=== PATIENT | male | born 1980 | race African-American/Black ===

== ENCOUNTER 2024-04-25 07:51 | Observation (INO) | payer SELFPAY ==
[2024-04-25] MEDS ORDERED: NA CHLORIDE 0.9% 1,000 ML ONE ×2 (08:12→09:41)
[2024-04-25 09:05] LABS: Specific Gravity > 1.030 (1.005-1.030); Sqamous Epithelial <5 /HPF (None Seen); Urine Bacteria None Seen /HPF (<20); Urine Bilirubin NEGATIVE (Negative); Urine Blood Negative (Negative); Urine Clarity Clear (Clear); Urine Color Light-Yellow (Yellow); Urine Culture Reflex Order NOT NEEDED; Urine Glucose 4+ (Over) (Negative); Urine Ketones 2+ (Negative); Urine Micro Reflex YN NO BILL MICROSCOPIC; Urine Mucus Slight /HPF (None Seen); Urine Nitrite NEGATIVE (Negative); Urine Protein TRACE (Negative); Urine RBC <5 /HPF (None Seen); Urine Urobilinogen Normal (Normal); Urine WBC <5 /HPF (<5)
[2024-04-25 09:44] LABS: Absolute Lymphocytes (CBC) 2.4 K/uL (0.7-4.9); Absolute Monocytes 0.7 K/uL (0.1-1.3); Absolute Neutrophil 4.8 K/uL (1.8-8.0); Basophils % 0.6 % (0-1.3); Eosinophils % 0.6 % (0-4.4); Hematocrit 41.8 % (39.6-49.0); Hemoglobin 14.6 g/dL (13.6-17.9); Lymphocytes % 29.9 % (15.3-44.8); MCH 30.3 pg (27.0-35.0); MCHC 35.1 g/dL (32.0-36.0); MCV 86.5 fL (80-100); MPV 9.4 fL (7.6-11.3); Monocytes % 8.5 % (3.3-12.3); Neutrophils % 60.4 % (41.7-73.7); Platelets 244 thou/uL (152-406); RBC Red Blood Cell Count 4.83 M/uL (4.33-5.43); Red Cell Distribution Width 14.1 % (12.1-15.2)
[2024-04-25 10:02] LABS: Sodium Level 138 mEq/L (136-145)
[2024-04-25 10:03] LABS: Alkaline Phosphatase 80 U/L (45-117); Anion Gap 29.4 mEq/L (5.0-15.0); BETA HYDROXYBUTYRATE 3.69 mmol/L (0.02-0.27); Bilirubin Total 0.4 mg/dL (0.2-1.0); Glomerular Filtration Rate 112 ml/min (=/>90); Glucose Level 355 mg/dL (74-106); Lipase 24 U/L (13-75); Phosphorus 4.5 mg/dL (2.5-4.9); Protein, Total 6.2 g/dL (6.4-8.2)
[2024-04-25 10:14] LABS: ALT/SGPT < 14 U/L (16-61); AST/SGOT < 10 U/L (15-37); Albumin < 0.9 g/dL (3.4-5.0); Albumin/Globulin Ratio ND (1.1-1.8); BUN Blood Urea Nitrogen < 3 mg/dL (7-18); Bicarbonate < 8 mEq/L (21-32); Bilirubin Direct < 0.2 mg/dL (0-0.2); Bilirubin Indirect, Calculated 0.2 mg/dL (0.2-0.8); Globulin 5.3 g/dL (2.3-3.5); Potassium 3.4 mEq/L (3.5-5.1)
[2024-04-25 10:15] LABS: Magnesium 2.3 mg/dL (1.6-2.4)
--- NOTE | 2024-04-25 10:24 | ER ---
Nurse's Notes [facility] Name: Dong Velazco Jr Age: 43 yrs Sex: Male : 1980 Arrival Date: 04/25/2024 Time: 07:51 Bed 15 Private MD: Diagnosis: Diabetes mellitus due to underlying condition with ketoacidosis without coma Presentation: 04/25 08:10 Chief complaint: Patient states: he has had frequent urination, nausea, increased ap3 thirst and fatigue for "some time". patient denies any pain at this time. patient reports he has been evaluated at another facility where he was informed he had "sugar in his urine". Coronavirus screen: At this time, the client does not indicate any symptoms associated with coronavirus-19. Ebola Screen: No symptoms or risks identified at this time. Initial Sepsis Screen: Does the patient meet any 2 criteria? No. Patient's initial sepsis screen is negative. Does the patient have a suspected source of infection? No. Patient's initial sepsis screen is negative. Risk Assessment: Do you want to hurt yourself or someone else? Patient reports no desire to harm self or others. Onset of symptoms is unknown. 08:10 Method Of Arrival: Ambulatory ap3 08:10 Acuity: FORTUNATO 3 ap3 Triage Assessment: 08:13 General: Appears in no apparent distress. Behavior is calm, cooperative, appropriate ap3 for age, Reports fatigue for. Pain: Denies pain. Neuro: Level of Consciousness is awake, alert, obeys commands, Oriented to person, place, time, situation. Cardiovascular: Patient's skin is warm and dry. Respiratory: Airway is patent Respiratory effort is even, unlabored, Respiratory pattern is regular, symmetrical. GI: Reports nausea. Historical: - Allergies: 08:12 No Known Allergies; ap3 - Home Meds: 08:12 None [Active]; ap3 - PMHx: 08:12 None; ap3 - Immunization history:: Client reports receiving the 2nd dose of the Covid vaccine. - Infectious Disease History:: Denies. - Social history:: Smoking status: Patient denies any tobacco usage or history of. Screenin:02 [facility] ED Fall Risk Assessment (Adult) History of falling in the last 3 months, rs5 including since admission No falls in past 3 months (0 pts) Confusion or Disorientation No (0 pts) Intoxicated or Sedated No (0 pts) Impaired Gait No (0 pts) Mobility Assist Device Used No (0 pt) Altered Elimination No (0 pt) Score/Fall Risk Level 0 - 2 = Low Risk Oriented to surroundings, Maintained a safe environment. 08:14 Abuse screen: Denies threats or abuse. Nutritional screening: No deficits noted. ap3 Tuberculosis screening: No symptoms or risk factors identified. Assessment: 08:02 General: Appears in no apparent distress. uncomfortable, Behavior is calm, cooperative. rs5 Pain: Denies pain. Neuro: Level of Consciousness is awake, alert, obeys commands, Oriented to person, place, time, situation, Reports generalized weakness and fatigue. Cardiovascular: Patient's skin is warm and dry. Respiratory: Airway is patent Respiratory effort is even, unlabored, Respiratory pattern is regular, symmetrical. GI: Abdomen is round non-distended, Reports nausea, Patient currently denies vomiting. : Reports urinary frequency. EENT: Reports increased thirst over past 2-3 days. Derm: Skin is intact, Skin is dry, Skin is normal, Skin temperature is warm. Musculoskeletal: Range of motion: intact in all extremities. 08:20 Reassessment: to bedside for blood sugar check, BS results: 393, provider notified of rs5 elevated blood sugars. 09:22 Reassessment: Patient and/or family updated on plan of care and expected duration. Pain rs5 level reassessed. Patient is alert, oriented x 3, equal unlabored respirations, skin warm/dry/pink. 10:45 Reassessment: No changes from previously documented assessment. rs5 11:01 Reassessment: Patient and/or family updated on plan of care and expected duration. Pain rs5 level reassessed. Patient is alert, oriented x 3, equal unlabored respirations, skin warm/dry/pink. General: Behavior is. Vital Signs: 08:10 BP 144 / 94; Pulse 84; Resp 18; Temp 98.6(O); Pulse Ox 100% ; Weight 126.1 kg; Height 5 ap3 ft. 7 in. ; 10:05 BP 137 / 88; Pulse 77; Resp 17; Pulse Ox 99% on R/A; rs5 11:02 BP 133 / 84; Pulse 70; Resp 17; Pulse Ox 99% on R/A; rs5 08:10 Body Mass Index 43.54 (126.10 kg, 170.18 cm) ap3 ED Course: 07:54 Patient arrived in ED. rg4 07:59 Carrie Marin [facility]C is [facility] sb4 07:59 Jan Villarreal MD is Attending Physician. sb4 08:07 Jaren Maddox, RN is Primary Nurse. rs5 08:12 Triage completed. ap3 08:14 Arm band placed on right wrist. ap3 08:14 Patient has correct armband on for positive identification. Call light in reach. Side ap3 rails up X 1. Adult w/ patient. 08:22 Missed attempt(s): 22 gauge in right hand. rs5 08:55 Initial lab(s) drawn, by me, sent to lab. Inserted saline lock: 20 gauge in right em1 forearm, using aseptic technique. Blood collected. 09:20 Missed attempt(s): 24 gauge in left wrist. Bleeding controlled, band aid applied, ph catheter tip intact. 10:22 Theresa Solares MD is Hospitalizing Provider. sb4 11:02 No provider procedures requiring assistance completed. Patient admitted, IV remains in rs5 place. 11:03 Glucose, Ancillary Testing Sent. rs5 Administered Medications: 08:54 Drug: NS 0.9% IV 1000 ml IV at 1000 ml once Route: IV; Rate: 1000 ml; Site: right rs5 antecubital; 09:20 Follow up: Response: No adverse reaction rs5 10:02 Follow up: IV Status: Completed infusion; IV Intake: 999ml rs5 09:37 Drug: NS 0.9% IV 1000 ml IV at 1 bolus Per protocol; 1000 mL bolus Route: IV; Rate: 1 rs5 bolus; Site: right forearm; 10:00 Follow up: Response: No adverse reaction rs5 11:04 Follow up: IV Status: Completed infusion; IV Intake: 999ml rs5 11:34 Drug: Insulin Drip - (Insulin Regular Human IVP 100 units, NS 0.9% IV 100 ml) IV at rs5 calculated rate continuous; Standard concentration 1unit/ml; Dose for DKA is 0.1 units/kg/hr {Co-Signature: ph (Sveta Jesus RN).} Route: IV; Rate: calculated rate; Site: left antecubital; 11:45 Follow up: Response: No adverse reaction rs5 Medication: 11:03 VIS not applicable for this client. rs5 Intake: 10:02 IV: 999ml; Total: 999ml. rs5 11:04 IV: 999ml; Total: 1998ml. rs5 Outcome: 10:23 Decision to Hospitalize by Provider. sb4 11:03 Admitted to ER Hold. Please see [facility] for further documentation. rs5 11:03 Condition: stable 11:03 Instructed on the need for admit, Demonstrated understanding of instructions, 12:07 Patient left the ED. rs5 Signatures: Dylon Flores em1 Sveta Jesus, RN RN ph Charlotte Yee Amanda RN RN ap3 Carrie Marin PAElio PAElio sb4 Jaren Maddox RN RN rs5 Sveta Jesus RN ph Corrections: (The following items were deleted from the chart) 10:59 08:20 Reassessment: to bedside for blood sugar check, BS results: 393. rs5 rs5
--- NOTE | 2024-04-25 10:24 | EDPHYS ---
Physician Documentation [facility] Name: Dong Velazco Jr Age: 43 yrs Sex: Male : 1980 Arrival Date: 04/25/2024 Time: 07:51 Bed 15 Private MD: ED Physician Jan Villarreal HPI: 04/25 08:10 This 43 yrs old Black Male presents to ER via Unassigned with complaints of High Blood sb4 Sugar. 08:11 Patient states he has been feeling poorly over the past week. Very thirsty, frequent sb4 urination, headache, nausea, fatigue. He went to [place] ED 4 days ago for the frequent urination, was told he had glucose in his urine but also an infection and prescribed an antibiotic. States that his symptoms has have persisted. His significant other checked his blood sugar last night and states it read high. When she checked it this morning it was 530. He denies any prior diagnosis of diabetes or any chronic medical problems. Historical: - Allergies: 08:12 No Known Allergies; ap3 - Home Meds: 08:12 None [Active]; ap3 - PMHx: 08:12 None; ap3 - Immunization history:: Client reports receiving the 2nd dose of the Covid vaccine. - Infectious Disease History:: Denies. - Social history:: Smoking status: Patient denies any tobacco usage or history of. ROS: 08:11 Constitutional: Negative for fever, chills, and weight loss, sb4 08:11 Abdomen/GI: Positive for nausea, 08:11 Neuro: Positive for headache, 08:11 Endocrine: Positive for polydipsia, polyuria, 08:46 All other systems are negative, sb4 Exam: 08:11 Head/Face: Normocephalic, atraumatic. Eyes: Extra-ocular motions intact. Periorbital sb4 areas with no swelling, redness, or edema. ENT: Mucous membranes moist. Cardiovascular: Regular rate and rhythm with a normal S1 and S2. Respiratory: Lungs have equal breath sounds bilaterally, clear to auscultation and percussion. No rales, rhonchi or wheezes noted. No increased work of breathing, no retractions or nasal flaring. Abdomen/GI: Soft, non-tender, no distension. Skin: Warm, dry with normal turgor. Normal color with no rashes, no lesions, and no evidence of cellulitis. MS/ Extremity: Pulses equal, no cyanosis. Neurovascular intact. Full, normal range of motion. Neuro: Awake and alert, GCS 15, oriented to person, place, time, and situation. Motor strength 5/5 in all extremities. Sensory grossly intact. 08:11 Constitutional: The patient appears in no acute distress, alert, awake, obese, Vital Signs: 08:10 BP 144 / 94; Pulse 84; Resp 18; Temp 98.6(O); Pulse Ox 100% ; Weight 126.1 kg; Height 5 ap3 ft. 7 in. ; 10:05 BP 137 / 88; Pulse 77; Resp 17; Pulse Ox 99% on R/A; rs5 11:02 BP 133 / 84; Pulse 70; Resp 17; Pulse Ox 99% on R/A; rs5 08:10 Body Mass Index 43.54 (126.10 kg, 170.18 cm) ap3 MDM: 08:02 Patient medically screened. sb4 10:22 Data reviewed: vital signs, nurses notes, lab test result(s), and as a result, I will sb4 admit patient. Consideration of Admission/Observation Patient was admitted/placed on observation. Counseling: I had a detailed discussion with the patient and/or guardian regarding the historical points, exam findings, and any diagnostic results supporting the discharge/admit diagnosis, lab results, the need for further work-up and treatment in the hospital. 04/25 08:09 Order name: BETA HYDROXYBUTYRATE; Complete Time: 10:19 4 04/25 08:09 Order name: Basic Metabolic Panel; Complete Time: 10:19 4 04/25 08:09 Order name: CBC with Diff; Complete Time: 09:49 sb4 04/25 08:09 Order name: Hepatic Function; Complete Time: 10:19 sb4 04/25 08:09 Order name: Lipase; Complete Time: 10:19 4 04/25 08:09 Order name: Magnesium; Complete Time: 10:19 sb4 04/25 08:09 Order name: Phosphorus; Complete Time: 10:19 4 04/25 08:55 Order name: Urinalysis W/Microscopic; Complete Time: 09:07 EDMS 04/25 08:59 Order name: Glucose, Ancillary Testing; Complete Time: 08:59 EDMS 04/25 09:02 Order name: Glucose, Ancillary Testing EDMS 04/25 11:43 Order name: Glucose, Ancillary Testing; Complete Time: 11:43 EDMS 04/25 08:09 Order name: Cardiac monitoring; Complete Time: 08:54 sb4 04/25 08:09 Order name: IV Saline Lock; Complete Time: 08:54 sb4 04/25 08:09 Order name: O2 Per Protocol; Complete Time: 08:54 sb4 04/25 08:09 Order name: O2 Sat Monitoring; Complete Time: 08:54 sb4 04/25 09:18 Order name: Labs - recollect needed: recollect green top; Complete Time: 09:29 bd Administered Medications: 08:54 Drug: NS 0.9% IV 1000 ml IV at 1000 ml once Route: IV; Rate: 1000 ml; Site: right rs5 antecubital; 09:20 Follow up: Response: No adverse reaction rs5 10:02 Follow up: IV Status: Completed infusion; IV Intake: 999ml rs5 09:37 Drug: NS 0.9% IV 1000 ml IV at 1 bolus Per protocol; 1000 mL bolus Route: IV; Rate: 1 rs5 bolus; Site: right forearm; 10:00 Follow up: Response: No adverse reaction rs5 11:04 Follow up: IV Status: Completed infusion; IV Intake: 999ml rs5 11:34 Drug: Insulin Drip - (Insulin Regular Human IVP 100 units, NS 0.9% IV 100 ml) IV at rs5 calculated rate continuous; Standard concentration 1unit/ml; Dose for DKA is 0.1 units/kg/hr {Co-Signature: ph (Sveta Jesus RN).} Route: IV; Rate: calculated rate; Site: left antecubital; 11:45 Follow up: Response: No adverse reaction rs5 Disposition: 14:29 Co-signature as Attending Physician, Jan Villarreal MD I reviewed the patient's care rt provided by the Advanced Practice Provider and agree with the diagnosis and treatment plan. Disposition Summary: 04/25/24 10:23 Hospitalization Ordered Notes: Hospitalization Status: Inpatient Admission sb4 Provider: Theresa Solares sb4 Condition: Fair sb4 Problem: new sb4 Symptoms: are unchanged sb4 Bed/Room Type: Standard sb4 Location: Intensive Care Unit(04/25/24 10:26) sb4 Room Assignment: 6-(04/25/24 10:55) bd Diagnosis - Diabetes mellitus due to underlying condition with ketoacidosis without coma sb4 Discharge Instructions: - Discharge Summary Sheet sb4 - Type 2 Diabetes Mellitus, Diagnosis, Adult sb4 Forms: - Medication Reconciliation Form sb4 - SBAR form sb4 - Leadership Thank You Letter sb4 Prescriptions: - metformin 500 mg Oral tablet - take 1 tablet ORAL route 2 times per day with meals; 60 tablet; Refills: 0, sb4 Product Selection Permitted Critical care time excluding procedures: 10:38 Critical care time: Bedside Care: 15 minutes, Consultation: 10 minutes, Family sb4 Intervention: 10 minutes. Total time: 35 minutes Signatures: Dispatcher [employer] EDMS Mabel Mazariegos Amanda, RN RN ap3 Carrie Marin, DAWOOD PAElio sb4 Jan Villarreal MD MD rt Jaren Maddox RN RN rs5 Sveta Jesus RN ph Corrections: (The following items were deleted from the chart) 08:55 08:55 BETA HYDROXYBUTYRATE+C.LAB.BRZ ordered. EDMS EDMS 08:55 08:55 BASIC METABOLIC PANEL+C.LAB.BRZ ordered. EDMS EDMS 08:55 08:55 CBC+H.LAB.BRZ ordered. EDMS EDMS 08:55 08:55 HEPATIC FUNCTION+C.LAB.BRZ ordered. EDMS EDMS 08:55 08:55 LIPASE+C.LAB.BRZ ordered. EDMS EDMS 08:55 08:55 MAGNESIUM+C.LAB.BRZ ordered. EDMS EDMS 08:55 08:55 PHOSPHORUS+C.LAB.BRZ ordered. EDMS EDMS 08:58 08:55 Urinalysis W/Microscopic+U.LAB.BRZ ordered. EDMS EDMS 10:26 10:23 Telemetry/MedSurg (Inpatient) sb4 sb4 10:26 10:23 sb4 sb4 10:55 10:26 sb4 bd
--- NOTE | 2024-04-25 10:49 | P.HP ---
Certification for Inpatient Patient admitted to: Observation Practitioner: I am a practitioner with admitting privileges, knowledge of patient current condition, hospital course, and medical plan of care. Services: Services provided to patient in accordance with Admission requirements found in Title 42 Section 412.3 of the Code of Federal Regulations Patient History Date of Service: 04/25/24 Reason for admission: Hyperglycemia History of Present Illness: 47-year-old male with no significant past medical history presents to the emergency room with fatigue. He reports symptoms started 2 weeks ago is progressively worse. He reports polyuria, polydipsia, poor appetite, nothing makes it better, nothing makes it worse. He denies history of diabetes, ER evaluation patient had noted hyperglycemia blood glucose greater than 500, treated with 2 L normal saline, CBC within normal limit, UA 4+ glucosuria, 2+ ketones, plan to admit for DKA, new onset diabetes, to ICU on insulin drip. Allergies No Known Allergies Allergy (Unverified 04/25/24 10:50) - Past Medical/Surgical History -: New diagnosis of diabetes 04/2024 -: Ankle surgery - Social History Smoking Status: Current some day smoker Alcohol use: Yes Place of Residence: Home Review of Systems Per HPI Physical Examination - Physical Exam General: Alert, In no apparent distress, Oriented x3 HEENT: Atraumatic, Normocephalic Respiratory: Clear to auscultation bilaterally, Normal air movement Cardiovascular: Normal pulses, Regular rate/rhythm Gastrointestinal: Normal bowel sounds, Soft and benign Musculoskeletal: No clubbing, No swelling Integumentary: No breakdown, No significant lesion Neurological: Normal speech, Normal strength at 5/5 x4 extr - Studies Laboratory Data (last 24 hrs) 04/25/24 04/25/24 09:34 09:15 WBC 7.90 Hgb 14.6 Hct 41.8 Plt Count 244 Sodium 138 Potassium 3.4 L BUN < 3 L Creatinine 0.78 Glucose 355 H Phosphorus 4.5 Magnesium 2.3 Total Bilirubin 0.4 AST < 10 L ALT < 14 L Alkaline Phosphatase 80 Lipase 24 Assessment and Plan - Plan Assessment plan DKA acute New onset diabetes Obese BMI 43 Admit to ICU insulin drip, Every 4 hours BMP, IV fluids, IV antibiotics, transition to long-acting and A1c, C-peptide, Dietitian consult, educate on diabetic diet Will need to follow-up outpatient for new onset Hemoglobin A1c 12.2, Full code DVT Lovenox Diet n.p.o. Disposition Home independent prior Discharge Plan: Home - Advance Directives Does patient have a Living Will: No Does patient have a Durable POA for Healthcare: No - Code Status/Comfort Care Code Status: Full Code Critical Care: No Time Spent Managing Pts Care (In Minutes): 55
[2024-04-25] MEDS ORDERED: MORPHINE 4 MG/ML SYR IV PRN (10:58)
[2024-04-25] MEDS: INSULIN REGULAR, HUMAN 100 UNIT in NA CHLORIDE 0.9% 100 ML IV SCH (12:30)
[2024-04-25] MEDS ORDERED: ONDANSETRON 4 MG/2 ML VIAL IV PRN (13:01)
[2024-04-25] MEDS: Levofloxacin 750mg IV 750 MG/150 ML BAG IV SCH (13:47)
[2024-04-25] MEDS: ENOXAPARIN 40 MG/0.4 ML SQ SCH (13:47)
[2024-04-25] MEDS: NA CHLORIDE 0.9% 1,000 ML IV SCH ×2 (13:53→21:06)
[2024-04-25] MEDS: D5.45NS W/KCL 20MEQ 1,000 ML IV SCH (14:44)
[2024-04-25] MEDS: PNEUMOCOCCAL VACCINE 0.5 ML IMVAC ONE (15:00)
[2024-04-25 15:27] LABS: Anion Gap 9.5 mEq/L (5.0-15.0); Potassium 3.5 mEq/L (3.5-5.1)
[2024-04-25] MEDS: CALCIUM GLUCONATE 1 GM IVPB 1 GM/50 ML BAG IV ONE (18:28)
[2024-04-25] MEDS: INSULIN GLARGINE 100 UNIT/ML SQ SCH ×2 (18:41→18:48)
[2024-04-25] MEDS ORDERED: GLUCAGON 1 MG/VIAL IM PRN (20:04)
[2024-04-25] MEDS ORDERED: D50W 25 GM/50 ML SYRINGE IV PRN (20:04)
[2024-04-25] MEDS ORDERED: D10W 125 ML IV PRN (20:32)
[2024-04-25] MEDS ORDERED: INSULIN GLARGINE 100 UNIT/ML SQ SCH (21:00)
[2024-04-25 21:09] VITALS: O2SAT 97
[2024-04-25 21:13] LABS: Anion Gap 9.7 mEq/L (5.0-15.0); Potassium 3.7 mEq/L (3.5-5.1)
[2024-04-25] MEDS: INSULIN REGULAR (HUMAN) 100 UNIT/ML SQ SCH (21:20)
--- NOTE | 2024-04-26 06:36 | P.DS ---
Admission Date: 04/25/24 Discharge Date: 04/26/24 Disposition: ROUTINE DISCHARGE Discharge Condition: GOOD Reason for Admission: Hyperglycemia Brief History of Present Illness: 47-year-old male with no significant past medical history presents to the emergency room with fatigue. He reports symptoms started 2 weeks ago is progressively worse. He reports polyuria, polydipsia, poor appetite, nothing makes it better, nothing makes it worse. He denies history of diabetes, ER evaluation patient had noted hyperglycemia blood glucose greater than 500, treated with 2 L normal saline, CBC within normal limit, UA 4+ glucosuria, 2+ ketones, plan to admit for DKA, new onset diabetes, to ICU on insulin drip. - Physical Exam General: Alert, In no apparent distress, Oriented x3 HEENT: Atraumatic, Normocephalic Respiratory: Clear to auscultation bilaterally, Normal air movement Cardiovascular: Normal pulses, Regular rate/rhythm Gastrointestinal: Normal bowel sounds, Soft and benign Musculoskeletal: No clubbing, No swelling Integumentary: No breakdown, No significant lesion Neurological: Normal speech, Normal strength at 5/5 x4 extr Hospital Course: 43 year-old patient presented with hyperglycemia, Was noted to have DKA, Condition improved with insulin drip, IV fluids. Patient tolerating diet, stable for discharge to home with follow-up appointment with primary care physician. PROBLEM: DKA with hyperglycemia Rad/Lab/Micro: elevated blood glucose >500 Elevated A1C >12 Keep Blood glucose log, take blood sugar Before meals, and bed time Take Blood glucose log to PCP appointment, Keep diabetic, low carb diet Continue home medicines as previously prescribed GOAL: Clear understanding of disease process INSTRUCTIONS: Physician Discharge Instructions: -Follow-up with PCP in 1 to 2 weeks -Please call Dr. Solares at [phone] if any questions regarding hospital stay -Please call nursing station at [phone] if any nursing or medication questions -Return to the emergency room if symptoms worsen Diet: ADA, low sodium Activity: Fall precautions Vital Signs/Physical Exam: Temp Pulse Resp BP Pulse Ox 98.4 F 86 20 152/93 H 96 04/26/24 04:00 04/26/24 06:00 04/26/24 06:00 04/26/24 06:00 04/26/24 06:00 Laboratory Data at Discharge: WBC 7.90 thou/uL (4.3-10.9) 04/25/24 09:34 Hgb 14.6 g/dL (13.6-17.9) 04/25/24 09:34 Hct 41.8 % (39.6-49.0) 04/25/24 09:34 Plt Count 244 thou/uL (152-406) 04/25/24 09:34 Sodium 137 mEq/L (136-145) 04/25/24 20:50 Potassium 3.7 mEq/L (3.5-5.1) 04/25/24 20:50 BUN 11 mg/dL (7-18) 04/25/24 20:50 Creatinine 0.97 mg/dL (0.70-1.30) 04/25/24 20:50 Glucose 288 mg/dL (74-106) H 04/25/24 20:50 Phosphorus 4.5 mg/dL (2.5-4.9) 04/25/24 09:15 Magnesium 2.3 mg/dL (1.6-2.4) 04/25/24 09:15 Total Bilirubin 0.4 mg/dL (0.2-1.0) 04/25/24 09:15 AST < 10 U/L (15-37) L 04/25/24 09:15 ALT < 14 U/L (16-61) L 04/25/24 09:15 Alkaline Phosphatase 80 U/L (45-117) 04/25/24 09:15 Lipase 24 U/L (13-75) 04/25/24 09:15 Diet: ADA Activity: Fall precautions Followup: NONE,NONE [Primary Care Provider] - Time spent managing pt's care (in minutes): 55
[2024-04-26 07:12] LABS: Absolute Basophils 0.1 K/uL (0-0.5); Absolute Eosinophils 0.1 K/uL (0-0.5); Absolute Monocytes 0.6 K/uL (0.1-1.3); Absolute Neutrophil 6.2 K/uL (1.8-8.0); Basophils % 0.7 % (0-1.3); Eosinophils % 0.8 % (0-4.4); Hematocrit 37.2 % (39.6-49.0); Hemoglobin 13.1 g/dL (13.6-17.9); Lymphocytes % 36.4 % (15.3-44.8); MCH 30.7 pg (27.0-35.0); MCHC 35.2 g/dL (32.0-36.0); MCV 87.2 fL (80-100); MPV 9.1 fL (7.6-11.3); Monocytes % 5.7 % (3.3-12.3); Neutrophils % 56.4 % (41.7-73.7); Nucleated Red Blood Cells % 0.1 % (0-0); Platelets 213 thou/uL (152-406); RBC Red Blood Cell Count 4.27 M/uL (4.33-5.43); Red Cell Distribution Width 13.9 % (12.1-15.2)
[2024-04-26 07:50] LABS: Albumin 2.7 g/dL (3.4-5.0); Albumin/Globulin Ratio 0.8 (1.1-1.8); Anion Gap 14.6 mEq/L (5.0-15.0); BETA HYDROXYBUTYRATE 4.16 mmol/L (0.02-0.27); Bilirubin Total 0.2 mg/dL (0.2-1.0); Globulin 3.5 g/dL (2.3-3.5); Protein, Total 6.2 g/dL (6.4-8.2)
[2024-04-26 07:53] LABS: Potassium 3.6 mEq/L (3.5-5.1)
[2024-04-26 07:57] LABS: HDL Cholesterol 18 mg/dL (40-60); Phosphorus 3.4 mg/dL (2.5-4.9)
[2024-04-26 08:00] LABS: Magnesium 1.9 mg/dL (1.6-2.4)
[2024-04-26 08:10] LABS: LDL, Direct 71 mg/dL (100-129)
[2024-04-26] MEDS ORDERED: PNEUMOCOCCAL VACCINE 0.5 ML IMVAC ONE (10:07)
[2024-04-26 10:24] VITALS: BMI 43.5
[2024-04-26] MEDS: PNEUMOCOCCAL VACCINE 0.5 ML IMVAC ONE (10:34)
[2024-04-26 10:44] VITALS: BP 125/79; TEMP 98.2
== END 2024-04-26 10:48 | disposition home or self-care (01) ==
LOC: ER 07:51 → ERHOLD 10:40 → 3RD-ICU 11:01
PROVIDERS: ADMIT Hospitalist; ATTEND Hospitalist
DX: E11.10 Type 2 diabetes mellitus with ketoacidosis without coma (principal); E66.9 Obesity, unspecified; Z68.41 Body mass index [BMI] 40.0-44.9, adult; Z71.3 Dietary counseling and surveillance
CPT/HCPCS: 36415; 80048; 80053; 80061; 80076; 81001; 82010; 82947; 83036; 83605; 83690; 83735; 83930; 84100; 84681; 85025; 90471; 90732; 96361; 96374; 99285; G0378; J0612; J1650; J7030